=== PATIENT | male | born 1975 | race Caucasian/White ===

== ENCOUNTER 2016-12-30 17:17 | Emergency (ER) | payer OTHER ==
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
[2016-12-30] MEDS ORDERED: NS 1,000 ML IV ONE (17:29)
[2016-12-30 17:35] LABS: % IMMATURE GRANULYOCYTES 0.4 % (0.0-1.1); ABSOLUTE IMMATURE GRANULOCYTES 0.05 10^3/uL (0.00-0.10); ADD DIFF? NO; ADD MORPH? NO; ADD SCAN? NO; ATYPICAL LYMPHOCYTE FLAG 0 (0-99); FRAGMENT RBC FLAG 0 (0-99); HEMATOCRIT 50.2 % (40.0-51.0); LEFT SHIFT FLG 0 (0-99); LIPEMIA HEMOLYSIS FLAG 80 (0-99); MEAN CELL HEMOGLOBIN 34.9 pg (27.9-34.1); MEAN CELL HEMOGLOBIN CONCENTR. 31.9 g/dL (32.4-36.7); MEAN CELL VOLUME 109.4 fL (81.5-99.8); MEAN PLATELET VOLUME 10.4 fL (8.7-11.7); PLATELET CLUMPS FLAG 0 (0-99); PLATELET COUNT 245 10^3/uL (150-400); RED BLOOD CELL COUNT 4.59 10^6/uL (4.40-6.38); RED CELL DISTRIBUTION WIDTH 11.8 % (11.5-15.2)
[2016-12-30 17:49] LABS: ANION GAP 31 mEq/L (8-16); CALCIUM 10.5 mg/dL (8.5-10.4); CARBON DIOXIDE 12 mEq/l (22-31); CHLORIDE 105 mEq/L (97-110); CREATININE 1.4 mg/dL (0.7-1.3); GLOMERULAR FILTRATION RATE 55; GLUCOSE 109 mg/dL (70-100); POTASSIUM 3.6 mEq/L (3.5-5.2); SODIUM 148 mEq/L (134-144)
[2016-12-30 18:04] VITALS: RESP 19
[2016-12-30 18:31] VITALS: BP 130/70; PULSE 86; TEMP 97.9; O2SAT 92
== END 2016-12-30 18:46 | disposition home or self-care (01) ==
LOC: EDUNIT#
DX: G40.909 Epilepsy, unspecified, not intractable, without status epilepticus (principal)

== ENCOUNTER 2017-04-22 16:39 | Emergency (ER) | payer OTHER ==
[2017-04-22 16:46] VITALS: BP 118/85; PULSE 68; RESP 18; TEMP 97.7; O2SAT 95
[2017-04-22] MEDS ORDERED: TDAP ADULT 0.5 ML INJ (BOOSTRIX) IM ONE (17:07)
[2017-04-22] MEDS ORDERED: OXYCODONE/APAP 5/325 TAB PO ONE (17:07)
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
== END 2017-04-22 17:45 | disposition home or self-care (01) ==
PROC: 0HQLXZZ Repair Left Lower Leg Skin, External Approach (ICD-10-PCS; principal; 2017-04-22)
DX: S81.812A Laceration without foreign body, left lower leg, initial encounter (principal); W23.1XXA Caught, crushed, jammed, or pinched between stationary objects, initial encounter; Y93.55 Activity, bike riding

== ENCOUNTER 2017-05-06 15:23 | Emergency (ER) | payer OTHER ==
[2017-05-06 15:28] VITALS: RESP 16; O2SAT 96
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
[2017-05-06 17:13] VITALS: BP 112/56; PULSE 63; TEMP 97.7
== END 2017-05-06 17:11 | disposition home or self-care (01) ==
DX: S81.812D Laceration without foreign body, left lower leg, subsequent encounter (principal); W22.8XXD Striking against or struck by other objects, subsequent encounter

== ENCOUNTER 2017-05-16 14:30 | Emergency (ER) | payer OTHER ==
[2017-05-16 14:37] VITALS: BP 131/74; PULSE 66; RESP 15; TEMP 97.9; O2SAT 97
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
== END 2017-05-16 17:44 | disposition home or self-care (01) ==
PROC: 0H9LXZZ Drainage of Left Lower Leg Skin, External Approach (ICD-10-PCS; principal; 2017-05-16)
DX: M79.605 Pain in left leg (principal)

== ENCOUNTER 2017-08-01 15:05 | Emergency (ER) | payer OTHER ==
--- NOTE | 2017-08-01 15:20 | EDPHY ---
H & P Time Seen by Provider: 08/01/17 15:09 HPI/ROS: CHIEF COMPLAINT: Seizure HISTORY OF PRESENT ILLNESS: Patient with a history of epilepsy since 26/09 treated at [facility] currently on 200 mg twice daily of Lamictal. He also had surgery within the last month a [facility] to try and control his seizures. He does not drive and has seizures with a frequency from 3 times a week to once every 60 days. Today he was noted to have full body tonic clonic seizure and was brought in by EMS. Patient was initially confused but now is becoming more clear. He is on 200 mg twice daily of Lamictal and knows that his neurologist is Dr. Jasso at [place] REVIEW OF SYSTEMS: Eye: no change in vision ENT: no sore throat Cardiac: no chest pain or palpitations Pulmonary: no cough or SOB Abdomen: no vomiting, diarrhea, abdominal pain Musculoskeletal: no back pain or neck pain Skin: no rash Neuro: no headache Constitutional: no fever : no urinary symptoms A comprehensive 10 point review of systems is otherwise negative aside from elements mentioned in the history of present illness. PAST MEDICAL HISTORY: Seizure disorder. Anticoagulated for clotting disorder. Social history: Denies alcohol, friend present with him in the ER. Knows about driving warnings, has not been driving for at least 1 year now. General Appearance: Alert and conversant, cooperative. Eyes: No scleral icterus. ENT, Mouth: No tongue laceration or abrasion, has 1.5cm tender hematoma on vertex of scalp. Respiratory: Normal respiratory effort, breath sounds equal, lungs are clear to auscultation. Cardiovascular: Regular rate and rhythm. Gastrointestinal: Abdomen is soft and non tender. Neurological: Alert and oriented x3. Normally conversant. Face symmetric, normal movement and sensation in all extremities. Skin: Warm and dry, no rashes. Musculoskeletal: No peripheral edema and no joint swelling. Psychiatric: Not agitated. Emergency Department course/MDM: DR. Konrad Jasso 1529. Diagnostic testing at discharged June 21. Recommended leaving patient on current dose of medications. Cervical spine cleared clinically. 155: Normal head CT for trauma per [facility]. 160: Alert, appears normally conversant. Oriented x3. Wants to be discharged. Back to normal mental status. Plan to observe until 1699, discharge if no further seizure activity. 1654: Doing well, alert, no complaints. Smoking Status: Never smoked Constitutional: Initial Vital Signs Temperature (C) 36.7 C 08/01/17 15:23 Heart Rate 85 08/01/17 15:23 Respiratory Rate 18 08/01/17 15:23 Blood Pressure 134/89 H 08/01/17 15:23 O2 Sat (%) 98 08/01/17 15:23 O2 Delivery Mode Room Air Allergies/Adverse Reactions: No Known Allergies Allergy (Verified 04/22/17 16:42) Home Medications: Medication Instructions Recorded LAMOTRIGINE 09/17/16 Cephalexin [Keflex] 500 mg PO QID 10 Days cap 04/30/17 Medical Decision Making - Diagnostics EKG Interpretation: 12-lead EKG interpreted by me; official reading is in trace master. My interpretation is sinus rhythm rate 74 no ischemic changes. Imaging Results: Imaging Impressions Head CT 08/01/17 15:18 Impression: 1. No acute hemorrhage, hydrocephalus or mass effect. 2. Previous left temporal lobe surgical resection. 3. No epidural or subdural hematoma. Findings and recommendations discussed with Emergency Department physician, Michael Washington at 1549 hour, 08/01/2017. Final report concurs with initial preliminary interpretation. Differential Diagnosis: Differential diagnosis considered for a seizure including but not limited to electrolyte abnormality, alcohol withdrawal, medication noncompliance, head injury, and breakthrough seizure. - Data Points Laboratory Results: Laboratory Results 08/01/17 14:55 08/01/17 14:55 08/01/17 08/01/17 08/01/17 14:55 14:55 14:55 WBC 9.54 10^3/uL H 10^3/uL (3.80-9.50) RBC 4.67 10^6/uL 10^6/uL (4.40-6.38) Hgb 16.3 g/dL g/dL (13.7-17.5) Hct 48.6 % % (40.0-51.0) MCV 104.1 fL H fL (81.5-99.8) MCH 34.9 pg H pg (27.9-34.1) MCHC 33.5 g/dL g/dL (32.4-36.7) RDW 12.4 % % (11.5-15.2) Plt Count 255 10^3/uL 10^3/uL (150-400) MPV 10.1 fL fL (8.7-11.7) Neut % (Auto) 36.3 % L % (39.3-74.2) Lymph % (Auto) 51.7 % H % (15.0-45.0) [place] % (Auto) 7.8 % % (4.5-13.0) Eos % (Auto) 2.7 % % (0.6-7.6) Baso % (Auto) 0.7 % % (0.3-1.7) Nucleat RBC Rel Count 0.0 % % (0.0-0.2) Absolute Neuts (auto) 3.46 10^3/uL 10^3/uL (1.70-6.50) Absolute Lymphs (auto) 4.93 10^3/uL H 10^3/uL (1.00-3.00) Absolute Monos (auto) 0.74 10^3/uL 10^3/uL (0.30-0.80) Absolute Eos (auto) 0.26 10^3/uL 10^3/uL (0.03-0.40) Absolute Basos (auto) 0.07 10^3/uL 10^3/uL (0.02-0.10) Absolute Nucleated RBC 0.00 10^3/uL 10^3/uL (0-0.01) Immature Gran % 0.8 % % (0.0-1.1) Immature Gran # 0.08 10^3/uL 10^3/uL (0.00-0.10) PT 19.2 SEC H SEC (12.0-15.0) INR 1.61 H (0.83-1.16) Sodium 143 mEq/L mEq/L (134-144) Potassium 4.0 mEq/L mEq/L (3.5-5.2) Chloride 101 mEq/L mEq/L (97-110) Carbon Dioxide 11 mEq/l L mEq/l (22-31) Anion Gap 31 mEq/L H mEq/L (8-16) BUN 12 mg/dL mg/dL (7-23) Creatinine 1.3 mg/dL mg/dL (0.7-1.3) Estimated GFR 60 Glucose 98 mg/dL mg/dL (70-100) Calcium 9.5 mg/dL mg/dL (8.5-10.4) Departure - Departure Disposition: Home, Routine, Self-Care Clinical Impression: Seizure disorder Condition: Good Instructions: Epilepsy (ED) Referrals: VIKKI JASSO [Medical Doctor] - As per Instructions (Call your doctor tomorrow to arrange follow-up and further instructions on your medications. No driving.)
--- NOTE | 2017-08-01 15:20 | CPEKG ---
Heart Rate: 74 RR Interval: 811 P-R Interval: 172 QRSD Interval: 84 QT Interval: 380 QTC Interval: 422 P [place]: 67 QRS [place]: 25 T Wave [place]: 37 EKG Severity - NORMAL ECG - EKG Impression: SINUS RHYTHM Electronically Signed By: Michael Washington 01-Aug-2017 15:30:57
[2017-08-01 15:22] LABS: % IMMATURE GRANULYOCYTES 0.8 % (0.0-1.1); ABSOLUTE IMMATURE GRANULOCYTES 0.08 10^3/uL (0.00-0.10); ADD DIFF? NO; ADD MORPH? NO; ADD SCAN? NO; ATYPICAL LYMPHOCYTE FLAG 0 (0-99); FRAGMENT RBC FLAG 0 (0-99); HEMATOCRIT 48.6 % (40.0-51.0); HEMOGLOBIN 16.3 g/dL (13.7-17.5); LEFT SHIFT FLG 0 (0-99); LIPEMIA HEMOLYSIS FLAG 80 (0-99); MEAN CELL HEMOGLOBIN 34.9 pg (27.9-34.1); MEAN CELL HEMOGLOBIN CONCENTR. 33.5 g/dL (32.4-36.7); MEAN CELL VOLUME 104.1 fL (81.5-99.8); MEAN PLATELET VOLUME 10.1 fL (8.7-11.7); PLATELET CLUMPS FLAG 0 (0-99); PLATELET COUNT 255 10^3/uL (150-400); RED BLOOD CELL COUNT 4.67 10^6/uL (4.40-6.38); RED CELL DISTRIBUTION WIDTH 12.4 % (11.5-15.2)
[2017-08-01 15:26] VITALS: TEMP 98.1
[2017-08-01 15:31] LABS: ANION GAP 31 mEq/L (8-16); CALCIUM 9.5 mg/dL (8.5-10.4); CARBON DIOXIDE 11 mEq/l (22-31); CHLORIDE 101 mEq/L (97-110); CREATININE 1.3 mg/dL (0.7-1.3); GLOMERULAR FILTRATION RATE 60; GLUCOSE 98 mg/dL (70-100); SODIUM 143 mEq/L (134-144)
[2017-08-01 15:32] LABS: INR 1.61 (0.83-1.16); PROTIME(PATIENT) 19.2 SEC (12.0-15.0)
[2017-08-01 17:10] VITALS: BP 143/83; PULSE 71; RESP 16; O2SAT 95
== END 2017-08-01 17:09 | disposition home or self-care (01) ==
LOC: EDUNIT#
DX: G40.909 Epilepsy, unspecified, not intractable, without status epilepticus (principal)

== ENCOUNTER 2017-09-10 10:40 | Observation (INO) | payer OTHER ==
--- NOTE | 2017-09-10 13:05 | EDPHY ---
HPI/HX/ROS/PE/MDM Narrative: CHIEF COMPLAINT: Seizure HISTORY OF PRESENT ILLNESS: The patient is an anticoagulated 42 y/o male with a history of seizures and DVTs arriving with his friend for evaluation of a seizure last night. He remembers cleaning out his garage last night and later his friend found him at the front door "covered in blood" per patient. The patient does not remember what happened and believes he had a seizure. This morning the patient's mother from [id number] called the patient's friend concerned he had a seizure this morning as well, so his friend brought him here. This story is unclear as the patient does not remember most of last night or this morning. He currently complains of a headache, left sided facial pain, vomiting, left rib pain, and tongue swelling. No fever, chills, chest pain, shortness of breath, palpitations, abdominal pain , diarrhea, urinary complaints, lightheadedness. REVIEW OF SYSTEMS: Aside from elements discussed in the HPI, a comprehensive 10-point review of systems was reviewed and is negative. PAST MEDICAL HISTORY: 1. Epilepsy - Grand Mal seizures, Lamictal 2. DVT - Coumadin 3. 2 week admission at [facility] in June 2017 4. 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 Lives in [place]. Employed. VITAL SIGNS: Reviewed by me GENERAL: Well-developed, well-nourished, obvious with the left side of the face. Looks relatively uncomfortable. HEENT: Facial deformity on left buddhist from prior surgery, abrasions to left cheek with swelling. Eyes: Left eye has surrounding ecchymosis, no icterus, no injection. Mouth: moist mucous membranes. No erythema or lesions. Neck: no focal tenderness, supple with no adenopathy. LUNGS: Clear to auscultation bilaterally, no wheezes, rhonchi or rales. CARDIAC: Regular rate and rhythm, no rubs, murmurs or gallops. CHEST: Left anterior chest wall tenderness without crepitus ABDOMEN: Soft, epigastric, LUQ and left mid abdominal tenderness, no guarding or rebound, nondistended, bowel sounds normal. BACK: No CVA tenderness. No midline spinal tenderness to palpation. EXTREMITIES: No trauma. No edema. Range of motion is normal throughout. NEURO: Alert and oriented, cranial nerves are intact throughout, normal motor, normal sensation. SKIN: Warm and dry, no rash. PSYCHIATRIC: Normal mentation, no agitation. Portions of this note were transcribed by a medical physics teacher. I personally performed a history, physical exam, medical decision making, and confirmed accuracy of information the transcribed note. ED Course: This is an anticoagulated 42 y/o male with a history of seizures and upper extremity DVT who presents with left-sided injuries after a period of unconsciousness last night, which he believes was a seizure. He has left-sided chest wall tenderness, left-sided abdominal tenderness, ecchymosis around his left eye, and abrasions along his left cheek on exam. Particular concern for intracranial and intraabdominal injuries due to his use of Coumadin. Plan for IV , labs, EKG, imaging, and pain management. Head CT, neck CT, chest CT, abdomen CT ordered. 1L IV NS and 1mg IV Dilaudid administered. The 12 lead EKG was interpreted by myself. Sinus rhythm See hard copy and/or "tracemaster" electronic copy for interpretation. 1450: Head CT shows small, 6 mm area of intraparenchymal hemorrhage. CT scan of the cervical spine, chest, abdomen pelvis demonstrate no acute traumatic abnormalities. Patient does have severe compression fracture at T6 but this is sclerotic and not felt to be new. He also has linear scarring with bulla in the right posterior upper lobe of the lung which will require follow-up. Patient's course discussed with Dr. Camilo Reyes, neurosurgery. Plan to admit to Neurosurgery given patient's isolated head trauma. Patient's INR is currently subtherapeutic at 1.39. Patient's course also discussed with Dr. Gerard Vanessa who will evaluate the patient in the emergency department from a general surgical standpoint. Course was also discussed with Dr. Raghav Mathis from Neurology, they will evaluate the patient during this hospital visit. Patient was into ICU in stable condition. MDM: Differential diagnosis for the presenting complaint was considered including but not limited to concussion, skull fracture, intraparenchymal contusion, intraparenchymal hemorrhage, subarachnoid, subdural and epidural hematoma. Differential diagnosis of the patient's seizure was considered including but not limited to electrolyte abnormality, alcohol withdrawal, medication noncompliance, head injury, meningitis, encephalitis, and breakthrough seizure. - Data Points Imaging Results: Imaging Impressions Abdomen CT 09/10/17 13:18 Impression: No evidence for acute intra-abdominal or pelvic abnormality. Stable moderate compression fracture of L1. Mild progression of a mild compression fracture of T12. CT chest with IV contrast History: Trauma. Comparison: CT August 2012 and November 2013. Technique: 1.5-mm helical images were obtained of the chest from the the lung apices through the lung bases. This was done postintravenous contrast, with 95 mL Isovue-300 contrast. Multiplanar reformation was performed at the workstation. Radiation dose reduction technique was utilized. Findings: Severe compression fracture is seen of T6 with sclerosis, stable in appearance. There is mild depression of the superior endplate of T8, stable in appearance. No new thoracic spine fracture. There is multilevel degenerative change. Degenerative change is seen in both glenohumeral joints. There is evidence of prior surgery in the right glenoid. Heart size is within normal limits. No evidence for mediastinal hematoma. No significant mediastinal or hilar lymphadenopathy. There is a scarlike opacity, which is new from the interval in the posterior right upper lobe. There is a 7-mm irregular soft tissue component posteriorly adjacent to the fissure with adjacent bullae. Lungs are otherwise clear. No evidence for pulmonary contusion or pneumonia. No evidence for pleural effusion or pneumothorax. Impression: 1. Stable severe compression fracture of T6 with sclerosis. Stable mild compression fracture of T8. No new compression fracture. 2. New focal area of scarlike density and adjacent bullae in the posterior right upper lobe. As it has a 7-mm soft tissue component, consider follow up in 6 months. 3. Degenerative change in both glenohumeral joints. Results called and discussed with Dr. Rizwana Montes De Oca on September 10, 2017 at [address] 09/10/17 13:18 Impression: Small foci of intraparenchymal hemorrhage in the left frontal lobe. Scalp hematoma without evidence for skull fracture. Stable postsurgical change in the left anterior temporal lobe and left craniotomy. CT Cervical Spine Without Contrast History: Trauma. Technique: 1.5 mm helical images were obtained of the cervical spine without contrast. Multiplanar reformation was performed. Radiation dose reduction technique was utilized. Findings: No evidence for cervical spine fracture. No significant spondylolisthesis. There is mild disk height narrowing and osteophytosis at C5- C6 and C6-C7. Multilevel degenerative disk and degenerative joint disease of the cervical spine. The level of most significant encroachment is at C5-C6 with moderate central spinal canal and left lateral recess narrowing and moderate bilateral neural foraminal narrowing. Impression: 1. No evidence for cervical spine fracture. 2. Multilevel degenerative disk and degenerative joint disease of the cervical spine most pronounced at C5-C6. Results called and discussed with Rizwana Montes De Oca MD on 09/10/2017, 14:54. Chest CT 09/10/17 13:18 Impression: No evidence for acute intra-abdominal or pelvic abnormality. Stable moderate compression fracture of L1. Mild progression of a mild compression fracture of T12. CT chest with IV contrast History: Trauma. Comparison: CT August 2012 and November 2013. Technique: 1.5-mm helical images were obtained of the chest from the the lung apices through the lung bases. This was done postintravenous contrast, with 95 mL Isovue-300 contrast. Multiplanar reformation was performed at the workstation. Radiation dose reduction technique was utilized. Findings: Severe compression fracture is seen of T6 with sclerosis, stable in appearance. There is mild depression of the superior endplate of T8, stable in appearance. No new thoracic spine fracture. There is multilevel degenerative change. Degenerative change is seen in both glenohumeral joints. There is evidence of prior surgery in the right glenoid. Heart size is within normal limits. No evidence for mediastinal hematoma. No significant mediastinal or hilar lymphadenopathy. There is a scarlike opacity, which is new from the interval in the posterior right upper lobe. There is a 7-mm irregular soft tissue component posteriorly adjacent to the fissure with adjacent bullae. Lungs are otherwise clear. No evidence for pulmonary contusion or pneumonia. No evidence for pleural effusion or pneumothorax. Impression: 1. Stable severe compression fracture of T6 with sclerosis. Stable mild compression fracture of T8. No new compression fracture. 2. New focal area of scarlike density and adjacent bullae in the posterior right upper lobe. As it has a 7-mm soft tissue component, consider follow up in 6 months. 3. Degenerative change in both glenohumeral joints. Results called and discussed with Dr. Rizwana Montes De Oca on September 10, [address] 09/10/17 13:18 Impression: Small foci of intraparenchymal hemorrhage in the left frontal lobe. Scalp hematoma without evidence for skull fracture. Stable postsurgical change in the left anterior temporal lobe and left craniotomy. CT Cervical Spine Without Contrast History: Trauma. Technique: 1.5 mm helical images were obtained of the cervical spine without contrast. Multiplanar reformation was performed. Radiation dose reduction technique was utilized. Findings: No evidence for cervical spine fracture. No significant spondylolisthesis. There is mild disk height narrowing and osteophytosis at C5- C6 and C6-C7. Multilevel degenerative disk and degenerative joint disease of the cervical spine. The level of most significant encroachment is at C5-C6 with moderate central spinal canal and left lateral recess narrowing and moderate bilateral neural foraminal narrowing. Impression: 1. No evidence for cervical spine fracture. 2. Multilevel degenerative disk and degenerative joint disease of the cervical spine most pronounced at C5-C6. Results called and discussed with Rizwana Montes De Oca MD on 09/10/2017, 14:54. Imaging: Discussed imaging studies w/ ticket sales agent Radiologist, I viewed and interpreted images myself Laboratory Results: Laboratory Results 09/10/17 12:45 09/10/17 12:45 09/10/17 09/10/17 09/10/17 14:50 13:21 12:45 WBC RBC Hgb POC Hgb 16.3 gm/dL gm/dL (13.7-17.5) Hct POC Hct 48 % % (40-51) MCV MCH MCHC RDW Plt Count MPV Neut % (Auto) Lymph % (Auto) [place] % (Auto) Eos % (Auto) Baso % (Auto) Nucleat RBC Rel Count Absolute Neuts (auto) Absolute Lymphs (auto) Absolute Monos (auto) Absolute Eos (auto) Absolute Basos (auto) Absolute Nucleated RBC Immature Gran % Immature Gran # PT INR APTT POC Sodium 139 mEq/L mEq/L (134-144) Sodium 140 mEq/L mEq/L (134-144) POC Potassium 4.5 mEq/L mEq/L (3.3-5.0) Potassium 4.3 mEq/L mEq/L (3.5-5.2) POC Chloride 102 mEq/L mEq/L (97-110) Chloride 102 mEq/L mEq/L (97-110) Carbon Dioxide 26 mEq/l mEq/l (22-31) Anion Gap 12 mEq/L mEq/L (8-16) POC BUN 16 mg/dL mg/dL (7-23) BUN 13 mg/dL mg/dL (7-23) Creatinine 1.1 mg/dL mg/dL (0.7-1.3) POC Creatinine 1.1 mg/dL mg/dL (0.7-1.3) Estimated GFR > 60 Glucose 83 mg/dL mg/dL (70-100) POC Glucose 115 mg/dL H mg/dL (70-100) Calcium 9.5 mg/dL mg/dL (8.5-10.4) Urine Opiates Screen NON-NEGATIVE H (NEGATIVE) Urine Barbiturates NEGATIVE (NEGATIVE) Ur Phencyclidine Scrn NEGATIVE (NEGATIVE) Ur Amphetamine Screen NEGATIVE (NEGATIVE) U Benzodiazepines Scrn NEGATIVE (NEGATIVE) Urine Cocaine Screen NEGATIVE (NEGATIVE) U Marijuana (THC) Screen NON-NEGATIVE H (NEGATIVE) 09/10/17 09/10/17 12:45 12:45 WBC 11.63 10^3/uL H 10^3/uL (3.80-9.50) RBC 4.68 10^6/uL 10^6/uL (4.40-6.38) Hgb 15.8 g/dL g/dL (13.7-17.5) POC Hgb Hct 46.8 % % (40.0-51.0) POC Hct MCV 100.0 fL H fL (81.5-99.8) MCH 33.8 pg pg (27.9-34.1) MCHC 33.8 g/dL g/dL (32.4-36.7) RDW 12.6 % % (11.5-15.2) Plt Count 214 10^3/uL 10^3/uL (150-400) MPV 10.2 fL fL (8.7-11.7) Neut % (Auto) 80.0 % H % (39.3-74.2) Lymph % (Auto) 11.3 % L % (15.0-45.0) [place] % (Auto) 7.8 % % (4.5-13.0) Eos % (Auto) 0.2 % L % (0.6-7.6) Baso % (Auto) 0.3 % % (0.3-1.7) Nucleat RBC Rel Count 0.0 % % (0.0-0.2) Absolute Neuts (auto) 9.30 10^3/uL H 10^3/uL (1.70-6.50) Absolute Lymphs (auto) 1.31 10^3/uL 10^3/uL (1.00-3.00) Absolute Monos (auto) 0.91 10^3/uL H 10^3/uL (0.30-0.80) Absolute Eos (auto) 0.02 10^3/uL L 10^3/uL (0.03-0.40) Absolute Basos (auto) 0.04 10^3/uL 10^3/uL (0.02-0.10) Absolute Nucleated RBC 0.00 10^3/uL 10^3/uL (0-0.01) Immature Gran % 0.4 % % (0.0-1.1) Immature Gran # 0.05 10^3/uL 10^3/uL (0.00-0.10) PT 17.2 SEC H SEC (12.0-15.0) INR 1.39 H (0.83-1.16) APTT 29.1 SEC SEC (23.0-38.0) POC Sodium Sodium POC Potassium Potassium POC Chloride Chloride Carbon Dioxide Anion Gap POC BUN BUN Creatinine POC Creatinine Estimated GFR Glucose POC Glucose Calcium Urine Opiates Screen Urine Barbiturates Ur Phencyclidine Scrn Ur Amphetamine Screen U Benzodiazepines Scrn Urine Cocaine Screen U Marijuana (THC) Screen Medications Given: Discontinued Medications Hydromorphone HCl (Dilaudid) 1 mg IVP EDNOW ONE Stop: 09/10/17 13:19 Last Admin: 09/10/17 13:34 Dose: 1 mg Hydromorphone HCl (Dilaudid) 1 mg IVP EDNOW ONE Stop: 09/10/17 15:26 Last Admin: 09/10/17 15:38 Dose: 1 mg Sodium Chloride (Ns) 1,000 mls @ 0 mls/hr IV ONCE ONE; Wide Open PRN Reason: Protocol Stop: 09/10/17 13:19 Last Admin: 09/10/17 13:34 Dose: 1,000 mls Lorazepam (Ativan Injection) 1 mg IVP EDNOW ONE Stop: 09/10/17 13:34 Last Admin: 09/10/17 13:35 Dose: 1 mg Ondansetron HCl (Zofran) 4 mg IVP EDNOW ONE Stop: 09/10/17 13:36 Last Admin: 09/10/17 13:40 Dose: 4 mg Point of Care Test Results: 09/10/17 13:21 POC Sodium 139 POC Potassium 4.5 POC Chloride 102 POC BUN 16 POC Creatinine 1.1 POC Glucose 115 H General Time Seen by Provider: 09/10/17 12:48 Initial Vital Signs: Initial Vital Signs Temperature (C) 36.5 C 09/10/17 10:45 Heart Rate 77 09/10/17 10:45 Respiratory Rate 18 09/10/17 10:45 Blood Pressure 144/59 H 09/10/17 10:45 O2 Sat (%) 94 09/10/17 10:45 O2 Delivery Mode Room Air Allergies/Adverse Reactions: No Known Allergies Allergy (Verified 09/10/17 10:49) Home Medications: Medication Instructions Recorded Herbals/Supplements -Info Only 1 ea PO HS 09/10/17 Warfarin Sodium [Coumadin 4MG (*)] 4 mg PO HS 09/10/17 lamOTRIGine [Lamotrigine] 400 mg PO DAILY 09/10/17 Departure - Departure Disposition: [facility] Acute Clinical Impression: Intraparenchymal hemorrhage of brain, Seizure, on coumadin Condition: Serious Report Scribed for: Rizwana Montes De Oca Report Scribed by: Elly Perez Date of Report: 09/10/17 Time of Report: 13:13
[2017-09-10] MEDS ORDERED: NS 1,000 ML IV ONE (13:18)
[2017-09-10] MEDS ORDERED: HYDROmorphONE/DILAUDID 1 MG/ML INJ IVP ONE (13:18)
[2017-09-10 13:26] LABS: % IMMATURE GRANULYOCYTES 0.4 % (0.0-1.1); ABSOLUTE IMMATURE GRANULOCYTES 0.05 10^3/uL (0.00-0.10); ADD DIFF? NO; ADD MORPH? NO; ADD SCAN? NO; ATYPICAL LYMPHOCYTE FLAG 0 (0-99); FRAGMENT RBC FLAG 0 (0-99); HEMATOCRIT 46.8 % (40.0-51.0); HEMOGLOBIN 15.8 g/dL (13.7-17.5); LEFT SHIFT FLG 0 (0-99); LIPEMIA HEMOLYSIS FLAG 90 (0-99); MEAN CELL HEMOGLOBIN 33.8 pg (27.9-34.1); MEAN CELL HEMOGLOBIN CONCENTR. 33.8 g/dL (32.4-36.7); MEAN PLATELET VOLUME 10.2 fL (8.7-11.7); PLATELET CLUMPS FLAG 0 (0-99); PLATELET COUNT 214 10^3/uL (150-400); RED BLOOD CELL COUNT 4.68 10^6/uL (4.40-6.38); RED CELL DISTRIBUTION WIDTH 12.6 % (11.5-15.2)
[2017-09-10] MEDS ORDERED: LORazepam 2 MG/ML INJ ONE (13:29)
[2017-09-10] MEDS ORDERED: ONDANSETRON 4 MG/2 ML VIAL ONE (13:30)
[2017-09-10] MEDS ORDERED: LORazepam 2 MG/ML INJ IVP ONE (13:33)
[2017-09-10 13:34] LABS: INR 1.39 (0.83-1.16); PROTIME(PATIENT) 17.2 SEC (12.0-15.0)
[2017-09-10 13:35] LABS: ANION GAP 12 mEq/L (8-16); APTT 29.1 SEC (23.0-38.0); CALCIUM 9.5 mg/dL (8.5-10.4); CARBON DIOXIDE 26 mEq/l (22-31); CHLORIDE 102 mEq/L (97-110); CREATININE 1.1 mg/dL (0.7-1.3); GLOMERULAR FILTRATION RATE > 60; GLUCOSE 83 mg/dL (70-100); POTASSIUM 4.3 mEq/L (3.5-5.2); SODIUM 140 mEq/L (134-144)
[2017-09-10] MEDS ORDERED: ONDANSETRON 4 MG/2 ML VIAL IVP ONE (13:35)
--- NOTE | 2017-09-10 15:15 | CPEKG ---
Heart Rate: 71 RR Interval: 845 P-R Interval: 180 QRSD Interval: 88 QT Interval: 404 QTC Interval: 439 P [place]: 61 QRS [place]: 5 T Wave [place]: 3 EKG Severity - NORMAL ECG - EKG Impression: SINUS RHYTHM Electronically Signed By: Rizwana Montes De Oca 10-Sep-2017 17:56:46
[2017-09-10] MEDS ORDERED: HYDROmorphONE/DILAUDID 2 MG/ML INJ IVP ONE (15:25)
--- NOTE | 2017-09-10 16:48 | GCON ---
[f rep st] CONSULTATION NEUROSURGICAL CONSULTATION CHIEF COMPLAINT: Fall with syncope. HISTORY OF PRESENT ILLNESS: This is a 42-year-old male, who was in excellent health yesterday and is on anticoagulation with a history of seizures and DVTs who arrived via his friend. Apparently he ramos d some type of a seizure or a fall last evening. He remembers cleaning out his garage. His friend paul dowd found him at the front door covered in blood per the patient. He does not remember what happene d and believes he may have had a seizure The patient's mother from out of state had appare ntly called the patient's friend concerned he had a seizure and his friend brought him to the [facility]. The patient is completely amnestic. At this point in time, he complains of headache, nausea, vom iting, left-sided rib pain, left shoulder pain, left 1st three digit paresthesias, foot pain, and fac ial pain. He denies any neck pain, back pain, weakness, loss of control of bowel or bladder. He den ies any other complaints. PAST MEDICAL HISTORY: 1. Epilepsy. 2. DVT. 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 SURGICAL HISTORY: Temporal lobectomy. SOCIAL HISTORY: Lives in [place], is employed. Does not smoke. Denies alcohol. FAMILY HISTORY: No significant family history. REVIEW OF SYSTEMS: A complete 10 system review of systems was performed by myself. Was negative exc ept as stated above. PHYSICAL EXAMINATION: VITAL SIGNS: Blood pressure is 129/84, heart rate 72, respiratory rate 14, sa turating 98% on room air. NEUROLOGIC: He is alert and oriented x3. Pupils are equal, round, reactiv e to light and accommodation. External ocular muscles are intact. There is left facial ecchymosis a nd periorbital ecchymosis. He has some limitation in his left side given to the swelling in the left side of his face. There is no tongue deviation. Sensation is intact V1, V2, V3 distributions of 5th cranial nerve bilaterally. Strength is 5/5 to bilateral deltoids, biceps, triceps, wrist flexors, w rist extensors, hand intrinsics, iliopsoas, quadriceps, hamstrings, dorsiflexors, plantar flexors, EH L. DTRs are +2/4 biceps, brachioradialis, patellar, and Achilles. LABORATORY/IMAGING DATA: White blood cell count 11.63, hemoglobin 15.8, hematocrit 46.8. Platelets are 214. PT is 17.2. INR is 1.39. PTT is 29.1. Sodium 139, potassium 4.5, chloride 102, CO2 102, BUN 13, creatinine 1.1. Glucose 115. Urine is positive for opiates and marijuana. CT of the head r eveals soft tissue swelling in the left frontal scalp indicating scalp hematoma, no evidence for skul l fracture. A small foci of increased attenuation in the anterior parenchyma in the left frontal lob e that is very subtle. No evidence of epidural or subdural hematoma. Postsurgical changes are seen in the left temporal craniotomy and resection of the anterior left temporal lobe is stable in appeara nce. No other findings of intracranial mass, hemorrhage or infarct. Ventricle sulci and cisterns ar e otherwise within normal limits for patient's age. Another nonspecific density is seen in the poste rior left parietal scalp which could represent another scalp hematoma that was not seen recently in O ctober. No evidence for air-fluid level in the paranasal sinuses. CT of the cervical spine reveals mild multilevel degenerative disk disease most pronounced at C5-6 with mild disk height narrowing and osteophytosis at C5-6 and C6-7. There is mild to moderate central spinal canal and left lateral rec ess narrowing, and moderate bilateral neural foraminal narrowing at C5-6. CT of the chest reveals a compression fracture of T6 with sclerosis that is stable in appearance representing an old and mild d epression of the superior endplate of T8 representing old fractures. No new compression fractures. Multilevel degenerative changes present. There is a stable moderate compression fracture of L1 zeferino red to previous and some mild depression in superior endplate of T12 that may have minimally progress ed over the interval. No evidence of acute fracture. IMPRESSION AND PLAN: This is a 42-year-old male, who apparently had a seizure, although he is amnest ic and has a seizure disorder who has a very small foci of questionable petechial hemorrhage in the l eft frontal lobe. He is anticoagulated for deep vein thrombosis. At this point in time, would defer to Neurology for management of his seizures. Would not recommend any further imaging of the brain u nless clinically indicated. Defer to Trauma Surgery for management of his other injuries. At this p oint in time, I believe that the compression fractures seen are chronic as they were compared with pr evious studies and do not require further treatment. If he continues to have paresthesias in his lef t hand, could recommend an MRI of the cervical spine; however, would not address this in the acute se tting. He may follow up as an outpatient for this. He could be admitted to the floor or to the step -down at Trauma's discretion and with q.2 hour neurologic checks and likely will be discharged in the morning. Please call with any changes in neurologic status. /[id number]/MODL
[2017-09-10] MEDS ORDERED: ACETAMINOPHEN 325 MG TAB PO PRN (17:41)
[2017-09-10] MEDS: OXYCODONE/APAP 5/325 TAB PO PRN ×2 (18:03→21:58)
[2017-09-10] MEDS ORDERED: lamoTRIgine 25 MG TAB PO ONE (19:00)
[2017-09-11] MEDS: OXYCODONE/APAP 5/325 TAB PO PRN (03:45)
[2017-09-11 03:55] VITALS: RESP 14; O2SAT 96
[2017-09-11 04:01] LABS: % IMMATURE GRANULYOCYTES 0.3 % (0.0-1.1); ABSOLUTE IMMATURE GRANULOCYTES 0.03 10^3/uL (0.00-0.10); ADD DIFF? NO; ADD MORPH? NO; ADD SCAN? NO; ATYPICAL LYMPHOCYTE FLAG 0 (0-99); FRAGMENT RBC FLAG 0 (0-99); HEMATOCRIT 43.2 % (40.0-51.0); HEMOGLOBIN 15.1 g/dL (13.7-17.5); LEFT SHIFT FLG 0 (0-99); LIPEMIA HEMOLYSIS FLAG 90 (0-99); MEAN CELL HEMOGLOBIN 35.1 pg (27.9-34.1); MEAN CELL VOLUME 100.5 fL (81.5-99.8); PLATELET CLUMPS FLAG 20 (0-99); PLATELET COUNT 196 10^3/uL (150-400); RED CELL DISTRIBUTION WIDTH 12.8 % (11.5-15.2)
[2017-09-11 04:10] LABS: INR 1.34 (0.83-1.16); PROTIME(PATIENT) 16.8 SEC (12.0-15.0)
[2017-09-11 04:11] LABS: APTT 31.2 SEC (23.0-38.0)
[2017-09-11 04:12] LABS: ANION GAP 13 mEq/L (8-16); CALCIUM 8.8 mg/dL (8.5-10.4); CARBON DIOXIDE 22 mEq/l (22-31); CHLORIDE 109 mEq/L (97-110); GLOMERULAR FILTRATION RATE > 60; GLUCOSE 89 mg/dL (70-100); POTASSIUM 4.2 mEq/L (3.5-5.2); SODIUM 144 mEq/L (134-144)
--- NOTE | 2017-09-11 04:25 | GCON ---
[f rep st] CONSULTATION HISTORY OF PRESENT ILLNESS: Patient is a 42-year-old male with chronic epilepsy who is 2 months stat us post craniotomy for control of his epilepsy with a temporal lobe resection. He, apparently, had a seizure last night, as best can be figured out. He is amnestic to events. His roommate brought him in today, after finding some blood on his head last night. He is admitted because he is on anticoag ulation. He has a vague petechial site on his head CT scan. He is presently neurologically complete ly intact, complaining of some left-sided rib pain. CT of the chest and abdomen were negative in the ER, as was the CT of his neck, and the head CT reveals a small vague petechial hemorrhage. PAST MEDICAL HISTORY: Includes epilepsy. He has had 2 craniotomies. He has mesial temporal scleros is causing his seizure disorder. He has had a recent DVT in his basilic vein from a PICC line. REVIEW OF SYSTEMS: Reveals no other major medical problems on a full complete review of systems. He specifically does not smoke. Denies any cardiopulmonary symptoms or diabetes. MEDICATIONS: Lamictal and warfarin. ALLERGIES: None. PHYSICAL EXAMINATION: GENERAL: Reveals an alert, cooperative, 42-year-old male in no acute distress . HEAD AND NECK: Reveal no significant evidence of trauma. He has craniotomy scars. He has a smal l amount of bruising over his left yarsanism area. TMs are clear. Pupils are normal. There are no ora l lesions. NECK: Supple, nontender. CHEST: Clear and symmetric. CARDIAC: Reveals a regular rhyt hm. ABDOMEN: Soft and nontender. EXTREMITIES: Benign with full range of motion and full pulses. NEUROLOGIC: Symmetric, physiologic. He is oriented x3. SKIN: Reveals no major abrasions or skin l esions. IMPRESSION: 1. Possible closed head injury with chronic seizures and possible recent grand mal seizure. Patient is on Coumadin, although his INR is only 1.3. Possible blunt shoulder and chest trauma, although no real evidence of any significant traumatic findings. 2. Chronic epilepsy with mesial temporal sclerosis. PLAN: Admit for observation, possible followup CT scan, if indicated, with neurology and neurosurger y consults. /[id number]/MODL
[2017-09-11] MEDS ORDERED: lamoTRIgine 100 MG TAB PO SCH ×2 (09:00)
--- NOTE | 2017-09-11 09:00 | NEUSURGPN ---
Assessment/Plan: 42 yr old with epilepsy s/p seizure and tiny left frontal petechial hemorrhage Plan: -Coumadin held, will defer to patients neurologist for need of further anticoagulant treatment. Risks vs benefits need to be careful considered given epilepsy history -Patient tiny left frontal petechial hemorrhage, no need for further imaging unless change in status -Patient has multiple old thoracic compression fractures -Neurology to see patient this am -Patient may dc home today after seen by Neurology -Discussed patient with Dr Bryant -Please call neurosurgery with any questions/concerns Subjective: Patient sitting on edge of bed doing well Objective: AxO x3 PERRLA EOMI CN 2-12 grossly intact -No droop -5/5 BUE, BLE Neuro Check Frequency: per routine Urinary Catheter in Place: No - Physician Discussed Patient with Dr.: Bryant Neurosurgery Physical Exam - Vitals, I&O, Labs I and O 09/10/17 09/11/17 09/12/17 05:59 05:59 05:59 Intake Total 750 Output Total 400 Balance 350 Weight 81.647 kg Intake: Oral (ml) 750 Output: Urine (ml) 400 Other: Number of Voids Toilet 3 Vital Signs Temp Pulse Resp BP Pulse Ox 36.6 C 53 L 14 116/72 96 09/11/17 00:00 09/11/17 03:54 09/11/17 03:54 09/11/17 03:54 09/11/17 03:54 Laboratory Results 09/11/17 03:50 09/11/17 03:50 ICD10 Worksheet Patient Problems: Problems Problem Status Onset Intraparenchymal hemorrhage of brain Acute Seizure Acute
[2017-09-11 09:32] VITALS: BP 104/73; PULSE 61; TEMP 98.2
--- NOTE | 2017-09-11 09:39 | TRAUMAPN ---
Assessment/Plan: 09/11/2017 PAD#1 Assessment: Tertiary re-evaluation shows only continued tenderness at left 7th costochondral junction without displacement by CT. Scar like density adjacent to bullae in right upper lobe should be followed up with CT in 6 months Plan: Nothing further to add from trauma standpoint. Subjective: no complaints except for left lower anterior chest wall mild tenderness. Objective: Vital Signs Temp Pulse Resp BP Pulse Ox 36.8 C 61 14 104/73 96 09/11/17 07:15 09/11/17 07:15 09/11/17 03:54 09/11/17 07:15 09/11/17 07:15 Laboratory Results 09/11/17 03:50 09/11/17 03:50 09/10/17 09/11/17 09/12/17 05:59 05:59 05:59 Intake Total 750 Output Total 400 Balance 350 PT 16.8 SEC (12.0-15.0) H 09/11/17 03:50 INR 1.34 (0.83-1.16) H 09/11/17 03:50 Physical Exam - Physical Exam General Appearance: WD/WN, alert, no apparent distress EENT: other (contusion in left temporal/left lateral orbital rim with minor abrasions to left lateral orbital rim) Neck: non-tender, full range of motion, supple Respiratory: chest non-tender (except left 7th costochondral junction ) Cardiac/Chest: regular rate, rhythm Abdomen: normal bowel sounds, non-tender, soft Male Genitalia: deferred Rectal: deferred Back: Normal inspection Skin: normal color, warm/dry Neuro/Psych: no motor/sensory deficits, alert, normal mood/affect, oriented x 3 Time Spent w/Patient (minutes): 25
--- NOTE | 2017-09-11 11:30 | ASDISCHSUM ---
Discharge Information Plan Status:Home with No Needs Medically Cleared to Leave:09/10/2017 Discharge Date:09/11/2017 10:07 AM CM D/C Disposition:Home, Routine, Self-Care ADT D/C Disposition:Home, Routine, Self-Care Projected Discharge Date:09/11/2017 10:00 AM Transportation at D/C:Friend Discharge Delay Reason: Follow-Up Date:09/11/2017 10:00 AM Discharge Slot: Final Diagnosis:Amber, ICH Placement Information Patient Contact Information Contact Name:GIOVANI Relationship:Mother Address:[address] City:[place] Alternate Phone: State/Zip Code:[place] [address] Email: Financial Information Financial Class:HMO and PPO Plans Primary Plan Desc:H[employer] Primary Plan Number:[id number] Secondary Plan Desc: Secondary Plan Number: Assessment Information Case Management Discharge Plan Note Case Management Discharge Discharge Order Complete? Answers: Yes Patient to Obtain Answers: Independently Medications Transportation Arranged Answers: Family/Friends Transport will Pick (Date 09/11/2017 12:00 AM & Time) Discharge Comments Notes: 42 year old male admitted after possible seizure and ICH. Patient has a hx of Epilepsy and 2 craniotomies. Patient has been cleared by Neurosurg and Neurology to discharge home. No other discharge needs. Date Signed: 09/11/2017 09:44 AM Electronically Signed By:Angela Holder LCSW Intervention Information
--- NOTE | 2017-09-11 12:24 | NEUROPROG ---
Assessment: [id number] CC: Dr. Gerard Vanessa consulted neurology for seizure. Results of consult placed in EMR for review. HPI: Pt admitted 09/10/17 for small intracerebral hemorrhage following a suspected unwitnessed seizure. He was found by a neighbor covered in blood on 09/09/17 so it was felt he likely has an unwitnessed seizure. He has no memory of the event but has a known seizure disorder on Lamictal 400 mg/qd and is managed by a epileptologist at [facility] . He was on anticoagulation for a prior DVT. A head CT showed a small possible left frontal intracerebral hemorrhage. Neurosurgery saw the patient but no surgery was needed. Pt denied missing any medication so it was felt he had a breakthrough seizure. Trauma team also evaluating patient for any other injuries. Pt found to have multiple prior compression fractures in the spinal cord but per neurosurgery not likely acute and no current surgical therapy needed for them. I initially saw the patient on 09/11/17. PMHx: seizure d/o (prior mesial temporal lobectomy for sz control), DVT on anticoagulation SHx: no tobacco FHx: NC ROS: Pt denied acute fever, total vision loss, active severe chest pain, respiratory failure, total body severe rash, total bowel/bladder incontinence, psychosis, active seizures, or active bleeding O: VS reviewed General: Alert, bruises on left face and head Eyes: Fundoscopic exam not able to visualize optic disks CV: Heart RRR, no murmur, no carotid bruit Lungs: Clear to auscultation bilaterally, no rhonci or rales Neuro: - Mental: . Oriented x person/place/date . concentration appears normal . speech fluency/comprehension normal . memory appears normal . fund of knowledge appear intact - Cranial Nerves: . II: PERRL, VFFTC . III/IV/: EOMI, no nystagmus, normal smooth pursuits, no Ptosis . V: facial sensation intact to LT . VII: face symmetric to eye closure and smile . VIII: hearing intact to conversation . IX/X: uvula raises symmetrically . XI: SCM 5/5 B/L strength . XII: tongue protrudes to right but likely from tongue swelling from biting w/nl strength - Motor: . Tone: normal tone in all 4 extrem . Strength: no pronator drift, strength 5/5 throughout (B/L delt, bic, tri, hand shank piece tacker, hf/he, df/pf) - Reflexes: B/L bic/BR/patella 2/4 - Sensory: all 4 extrem intact to light touch - Coord: [id number] wnl, KATELYN wnl, [id number] wnl - Gait: deferred Labs: 09/11/17- CBC unremarkable, INR 1.34, UTox + opiates and marijuana, chem wnl Rads: 09/10/17- Head CT: small foci of intraparenchymal hemorrhage in the L frontal lobe. Scalp hematoma w/o evidence for skull fx. Stable postsurgical change in L ant temp lobe and left craniotomy. (I personally visualized the images on 09/11/17) Assessment: 1. Likely breakthrough seizure causing fall/head trauma with residual small left frontal hemorrhage (pt was on anticoagulation): Normal neurologic exam on 09/11/17. Head CT on 09/10/17 showed small left frontal hemorrhage. Pt with known seizure disorder appeared to have breakthrough seizure despite not missing any medications and not having any clear provoking factor. He declined making medication changes at this time but will call his epileptologist at [facility] today to get medication recommendations. 2. Old Compression fractures in Spine: Does not appear acute. Neurosurgery monitoring. Plan: - Neurosurgery following - Blood pressure goals per neurosurgery - Stop outpatient coumadin, restart decision per neurosurgery - Continue Lamictal XR 400 mg qd (pt declined medication changes) - Seizure precautions and no driving until f/u with epileptologist at [facility] - F/U by phone with epileptologist at [facility] today after discharge Objective: Vital Signs Temp Pulse Resp BP Pulse Ox 36.8 C 61 14 104/73 96 09/11/17 07:15 09/11/17 07:15 09/11/17 03:54 09/11/17 07:15 09/11/17 07:15 Laboratory Results 09/11/17 03:50 09/11/17 03:50 09/10/17 09/11/17 09/12/17 05:59 05:59 05:59 Intake Total 750 Output Total 400 Balance 350 PT 16.8 SEC (12.0-15.0) H 09/11/17 03:50 INR 1.34 (0.83-1.16) H 09/11/17 03:50 Allergies/Adverse Reactions: No Known Allergies Allergy (Verified 09/10/17 10:49)
== END 2017-09-11 10:07 | disposition home or self-care (01) ==
LOC: F2N 16:35
PROVIDERS: ADMIT Neurological Surgery; ATTEND Neurological Surgery
DX: G40.909 Epilepsy, unspecified, not intractable, without status epilepticus (principal); Z86.718 Personal history of other venous thrombosis and embolism; Z79.01 Long term (current) use of anticoagulants
CPT/HCPCS: 70450; 71260; 72125; 74177; 93005; 97165; G0378; 80305; 82947-QW; 96374; J1170; J2060; J2405

== ENCOUNTER 2017-09-25 14:36 | Emergency (ER) | payer OTHER ==
[2017-09-25 14:46] VITALS: RESP 18; TEMP 98.4
--- NOTE | 2017-09-25 15:01 | EDPHY ---
H & P Time Seen by Provider: 09/25/17 14:58 HPI/ROS: CHIEF COMPLAINT: Seizure HISTORY OF PRESENT ILLNESS: Patient has a history of epilepsy was admitted here in early September after having had a seizure. At that time he was on warfarin had at traumatic intracranial hemorrhage which is treated non operatively. He is not further on warfarin. He takes Lamictal 400 mg a day which is unchanged. He stepped Topamax after 2 days on discharge from the hospital because it was giving him stomach upset. Today and have visualized tonic-clonic seizure at [facility] and presents by EMS with his mom. Normal pre-hospital glucose. His mother said that [employer] staff told her he did not hit the ground because they were able to catch him. Currently just feels "shaken up "but denies any headache neck or back pain or weakness or numbness in extremities. REVIEW OF SYSTEMS: Eye: no change in vision ENT: no sore throat Cardiac: no chest pain or syncope Pulmonary: no cough or SOB Abdomen: no vomiting, diarrhea, abdominal pain Musculoskeletal: no back pain Skin: Still has a bruise on his left forehead from his fall 2 weeks ago Neuro: no headache Constitutional: no fever : no urinary symptoms A comprehensive 10 point review of systems is otherwise negative aside from elements mentioned in the history of present illness. PAST MEDICAL HISTORY: Seizure disorder, DVT Social history: Here with his mom, no alcohol General Appearance: Alert and conversant, cooperative. Eyes: No scleral icterus. ENT, Mouth: No hemotympanum, still has a fading bruise on his left forehead. No other facial tenderness. Respiratory: Normal respiratory effort, breath sounds equal, lungs are clear to auscultation. Cardiovascular: Regular rate and rhythm. Gastrointestinal: Abdomen is soft and non tender. Neurological: Alert and oriented x3. Normally conversant. Face symmetric, normal movement and sensation in all extremities. [id number] normal and no pronator drift. Not tremulous. Skin: Warm and dry, no rashes. Musculoskeletal: No peripheral edema and no joint swelling. No cervical thoracic or lumbar spine tenderness. Psychiatric: Not agitated. Emergency Department course/MDM: Patient at relatively low risk for IH given that he is no longer on warfarin. He presents with a breakthrough seizure and typically he has 2 a month. Cervical spine cleared clinically. This appears to be a typical breakthrough seizure and I am not suspicious at this time for intracranial hemorrhage, [employer] infection, [employer] mass, metabolic abnormality. Discussed with his neurologist. She recommends additional 50 xr lamotrigine up to 450 x 1 week then up to 500; and discharge with office followup. He only has a little bit of tenderness in his left forehead with palpation wears a bruise from his fall couple weeks ago. Alert, looks well, answers questions appropriately, acting normally per his mother. Smoking Status: Never smoked Constitutional: Initial Vital Signs Temperature (C) 36.9 C 09/25/17 14:44 Heart Rate 81 09/25/17 14:44 Respiratory Rate 18 09/25/17 14:44 Blood Pressure 137/77 H 09/25/17 14:44 O2 Sat (%) 96 09/25/17 14:44 O2 Delivery Mode Room Air Allergies/Adverse Reactions: No Known Allergies Allergy (Verified 09/10/17 10:49) Home Medications: Medication Instructions Recorded lamOTRIGine [Lamotrigine] 400 mg PO DAILY 09/10/17 Acetaminophen [Tylenol 325mg (*)] 650 mg PO Q4HRS PRN tab 09/11/17 Warfarin Sodium [Coumadin 4MG (*)] 4 mg PO HS #0 09/17/17 lamoTRIgine [Lamotrigine] 50 mg PO AD #20 tab.er.24 09/25/17 Medical Decision Making Differential Diagnosis: Differential diagnosis considered for a seizure including but not limited to electrolyte abnormality, alcohol withdrawal, medication noncompliance, head injury, and breakthrough seizure. Consult/Admit Bed Type: [place] [id number] Departure - Departure Disposition: Home, Routine, Self-Care Clinical Impression: Seizure disorder Condition: Good Instructions: Epilepsy (ED) Referrals: VIKKI PALACIO [Medical Doctor] - As per Instructions Prescriptions: lamoTRIgine [Lamotrigine] 50 mg PO AD #20 tab.er.24
[2017-09-25 15:37] VITALS: BP 138/89; PULSE 78; O2SAT 98
== END 2017-09-25 15:36 | disposition home or self-care (01) ==
LOC: EDUNIT#
DX: G40.909 Epilepsy, unspecified, not intractable, without status epilepticus (principal)

== ENCOUNTER 2017-09-29 17:01 | Emergency (ER) | payer OTHER ==
[2017-09-29 17:16] VITALS: TEMP 98.2
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
[2017-09-29 17:24] LABS: PLATELET COUNT 280 10^3/uL (150-400)
[2017-09-29] MEDS ORDERED: NS 1,000 ML IV ONE (18:14)
[2017-09-29] MEDS ORDERED: LORazepam 2 MG/ML INJ IVP ONE (18:54)
[2017-09-29 19:01] VITALS: BP 112/80; PULSE 70; RESP 16; O2SAT 94
== END 2017-09-29 19:42 | disposition home or self-care (01) ==
DX: R53.83 Other fatigue (principal); T43.295A Adverse effect of other antidepressants, initial encounter; E86.9 Volume depletion, unspecified
CPT/HCPCS: 96374; J2060

== ENCOUNTER 2017-11-08 11:21 | Emergency (ER) | payer OTHER ==
[2017-11-08 11:59] VITALS: RESP 16
[2017-11-08] MEDS ORDERED: HYDROCODONE/APAP 5/325 TAB ONE (12:55)
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
[2017-11-08] MEDS ORDERED: HYDROCODONE/APAP 5/325 TAB PO ONE (12:57)
[2017-11-08 13:09] VITALS: BP 114/74; PULSE 72; TEMP 97.9; O2SAT 95
== END 2017-11-08 13:09 | disposition home or self-care (01) ==
DX: R51 Headache (principal)

== ENCOUNTER 2017-12-29 13:18 | Emergency (ER) | payer OTHER ==
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
[2017-12-29 13:33] LABS: PLATELET COUNT 303 10^3/uL (150-400)
[2017-12-29 13:42] VITALS: RESP 16
[2017-12-29 13:48] LABS: INR 0.93 (0.83-1.16); PROTIME(PATIENT) 12.7 SEC (12.0-15.0)
[2017-12-29] MEDS ORDERED: OXYCODONE/APAP 5/325 TAB PO ONE (15:00)
[2017-12-29 16:06] VITALS: BP 116/77; PULSE 65; TEMP 98.6; O2SAT 95
== END 2017-12-29 16:06 | disposition home or self-care (01) ==
LOC: EDUNIT#
PROC: 0HQDXZZ Repair Right Lower Arm Skin, External Approach (ICD-10-PCS; principal; 2017-12-29)
DX: S00.81XA Abrasion of other part of head, initial encounter (principal); S51.011A Laceration without foreign body of right elbow, initial encounter; G40.909 Epilepsy, unspecified, not intractable, without status epilepticus; V18.2XXA Unspecified pedal cyclist injured in noncollision transport accident in nontraffic accident, initial encounter; Y92.410 Unspecified street and highway as the place of occurrence of the external cause

== ENCOUNTER 2018-06-11 13:04 | Emergency (ER) | payer OTHER, MEDICAID ==
[2018-06-11] MEDS ORDERED: NS 1,000 ML IV ONE (13:52)
--- NOTE | 2018-06-11 13:56 | EDPHY ---
General - History Smoking Status: Never smoked Time Seen by Provider: 06/11/18 13:52 Narrative: CHIEF COMPLAINT: Seizure, fell from bed HISTORY OF PRESENT ILLNESS: Patient reports headache, seizure and fall from bed. He does not know what happened as he is amnestic to events. He states that he would bed last night as routine. He woke this morning on floor of his bedroom and again in the bathroom floor. He does not know any details other than he "awoke in a puddle of urine" with severe headache and tongue pain. He has had some difficulty with thought process today. He has had difficulty ambulating other than pain in his back and head. No numbness or tingling. No weakness. No subsequent incontinence of bowel or bladder. Has a known history of epilepsy for the past year. He was supposed to see his neurologist today and [place] but was unable to do so. Pain in the back is severe with palpation and movement. Improved at rest and does not radiate. Headache is mild to moderate. Worse with movement. He also had 8-10 episodes of vomiting this morning. No other associated complaints or modifying factors. Last known seizure was December of this year. REVIEW OF SYSTEMS: 10 systems were reviewed and negative with the exception of the elements mentioned in the history of present illness. PCP: Dr. Corrina Beal SPECIALISTS: Neurology at [facility] PAST MEDICAL HISTORY: Epilepsy, "clotting disorder" PAST SURGICAL HISTORY: Craniotomy, SOCIAL HISTORY: Nonsmoker. Lives independently but currently disabled does not work. FAMILY HISTORY: Noncontributory EXAMINATION: General Appearance: Alert, no distress Head: normocephalic. no Jim sign. No raccoon eyes. Superficial hematoma on the occiput on the left side. Eyes: Pupils equal and round, no conjunctival pallor or injection. EOM symmetric without nystagmus. ENT, Mouth: Mucous membranes moist. Moderate ecchymosis and superficial wound to the anterior tongue. Airway is widely patent. Neck: Normal inspection, supple, non-tender. No crepitus or deformity. No midline tenderness. Mild tenderness the left trapezius only. Respiratory: Lungs are clear to auscultation Cardiovascular: Regular rate and rhythm. No murmur Gastrointestinal: Abdomen is soft and nontender Back: There is midline tenderness of the upper thoracic spine without crepitus or deformity. There is no tenderness of the lumbar spine. Neurological: GCS 15. Alert to person, place and time. Disoriented to scenario of events. 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 Patellar reflexes symmetric. No wrist or foot drop. Normal [id number]. No pronator drift. Postictal state Skin: Warm and dry, no rash. No laceration. Extremities: Nontender, no pedal edema. Symmetric range of motion. Psychiatric: Mood and affect normal DIFFERENTIAL DIAGNOSES: Including but not limited to seizure, closed injury, concussion, contusion, intracranial hemorrhage, skull fracture MDM: 1:50 p.m. Probable seizure with subsequent closed head injury. There are no known details of the event as he is amnestic and lives at home alone. He does have injury to the tongue. He has no evidence of ongoing seizure activity or status epilepticus. Has known seizure disorder. I have ordered imaging of the head due to closed head injury with uncertain details and amnestic to events. I have ordered laboratory studies and will provide IV fluid. He is resting comfortably. Vital signs are within limits. 2:54 p.m. Notified by radiologist Dr. Durbin. We discussed the radiology findings for the CT scan of the head. No suspected acute changes. Patient re- evaluated. He remains awake alert no acute distress. He is going to the radiology department for thoracic x-ray. Laboratory studies pending. 4:00 p.m. Lamotrigine level has been added. Thoracic spine x-ray reveals no acute findings. Patient remains awake alert, no acute distress. No seizure activity here. 4:40 p.m. Case discussed with Dr. Duarte, cardiopulmonary technologist for patient's neurologist (Dr. Palacio). She does not recommend any medication changes. She recommends that he contact their office to be seen in the next 1-2 days. I discussed this with the patient he is agreeable with this as well. He would like to go home this time. He has arranged for a right home as he does not drive. We discussed ED precautions for any subsequent seizures, any lower back pain, numbness, tingling , weakness or incontinence. He is ambulatory without difficulty or assistance. He is discharged home stable condition. SUPERVISION: Patient was independently examined, but I discussed the case with my secondary supervising physician Dr. Robles CONSULTATION: Neurology by telephone, Dr. Duarte (Neurology) (Brad Tucker) Medical Decision Making: PHYSICIAN DOCUMENTATION: The patient was evaluated and managed by the Physician Construction Engineer. My co- signature indicates that I have reviewed this chart and I agree with the findings and plan of care as documented. I am the secondary supervising physician. (Roberto Robles) - Diagnostics Imaging Results: Imaging Impressions Head CT 06/11/18 13:51 Impression: 1. No acute findings. If symptoms persist and clinical suspicion warrants, consider MRI. 2. Minimal increase in size of an area of cystic encephalomalacia in the anterior left temporal lobe. Findings discussed with Brad Tucker, 06/11/2018 at 14:53. Thoracic Spine X-Ray 06/11/18 13:52 Impression: Stable prominent compression deformity of T6 with associated sclerosis with upper endplate deformities of L1 and T12. No acute fracture is seen. - Objective Vital Signs: Initial Vital Signs Temperature (C) 98.1 F 06/11/18 13:07 Heart Rate 80 06/11/18 13:07 Respiratory Rate 17 06/11/18 13:07 Blood Pressure 127/76 H 06/11/18 13:07 O2 Sat (%) 96 06/11/18 13:07 O2 Delivery Mode Room Air Allergies/Adverse Reactions: No Known Allergies Allergy (Verified 06/11/18 13:07) Home Medications: Medication Instructions Recorded lamOTRIGine [Lamotrigine] 400 mg PO DAILY 09/10/17 lamoTRIgine [Lamotrigine] 50 mg PO AD #20 tab.er.24 09/25/17 oxyCODONE IR [Oxycodone Ir (*)] 5 mg PO Q6 PRN #7 tab 06/11/18 Laboratory Results: Laboratory Results 06/11/18 14:05 06/11/18 14:05 06/11/18 06/11/18 06/11/18 16:05 14:05 14:05 WBC 15.70 10^3/uL H 10^3/uL (3.80-9.50) RBC 4.62 10^6/uL 10^6/uL (4.40-6.38) Hgb 15.6 g/dL g/dL (13.7-17.5) Hct 44.7 % % (40.0-51.0) MCV 96.8 fL fL (81.5-99.8) MCH 33.8 pg pg (27.9-34.1) MCHC 34.9 g/dL g/dL (32.4-36.7) RDW 11.6 % % (11.5-15.2) Plt Count 215 10^3/uL 10^3/uL (150-400) MPV 9.9 fL fL (8.7-11.7) Neut % (Auto) 86.8 % H % (39.3-74.2) Lymph % (Auto) 5.5 % L % (15.0-45.0) [place] % (Auto) 6.8 % % (4.5-13.0) Eos % (Auto) 0.0 % L % (0.6-7.6) Baso % (Auto) 0.3 % % (0.3-1.7) Nucleat RBC Rel Count 0.0 % % (0.0-0.2) Absolute Neuts (auto) 13.63 10^3/uL H 10^3/uL (1.70-6.50) Absolute Lymphs (auto) 0.87 10^3/uL L 10^3/uL (1.00-3.00) Absolute Monos (auto) 1.07 10^3/uL H 10^3/uL (0.30-0.80) Absolute Eos (auto) 0.00 10^3/uL L 10^3/uL (0.03-0.40) Absolute Basos (auto) 0.04 10^3/uL 10^3/uL (0.02-0.10) Absolute Nucleated RBC 0.00 10^3/uL 10^3/uL (0-0.01) Immature Gran % 0.6 % % (0.0-1.1) Immature Gran # 0.09 10^3/uL 10^3/uL (0.00-0.10) Sodium 138 mEq/L mEq/L (135-145) Potassium 3.9 mEq/L mEq/L (3.3-5.0) Chloride 102 mEq/L mEq/L (97-110) Carbon Dioxide 26 mEq/l mEq/l (22-31) Anion Gap 10 mEq/L mEq/L (8-16) BUN 11 mg/dL mg/dL (7-23) Creatinine 0.9 mg/dL mg/dL (0.7-1.3) Estimated GFR > 60 Glucose 127 mg/dL H mg/dL (70-100) Calcium 9.6 mg/dL mg/dL (8.5-10.4) Creatine Kinase 613 IU/L H IU/L (0-224) CK-MB (CK-2) Fraction 4.51 ng/mL ng/mL (0.00-4.55) CK-MB (CK-2) % 0.7 % % (0.0-4.0) Creatine Kinase Interp NEGATIVE (NEGATIVE) Lamotrigine Pending Medications Given: Discontinued Medications Sodium Chloride (Ns) 1,000 mls @ 0 mls/hr IV EDNOW ONE; Wide Open PRN Reason: Protocol Stop: 06/11/18 13:53 Last Admin: 06/11/18 14:09 Dose: 1,000 mls Departure - Departure Disposition: Home, Routine, Self-Care Clinical Impression: Seizure, 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 Keep your appointment with your physicians as discussed 2. pain medication as provided as needed 3. ED precautions for recurrent seizure, midline back pain, numbness, tingling or weakness, incontinence of bowel or bladder Referrals: VIKKI PALACIO [Medical Doctor] - As per Instructions Prescriptions: oxyCODONE IR [Oxycodone Ir (*)] 5 mg PO Q6 PRN #7 tab PRN Reason: Pain, Breakthrough
[2018-06-11 14:23] LABS: PLATELET COUNT 215 10^3/uL (150-400)
[2018-06-11 15:12] LABS: CREATINE KINASE 613 IU/L (0-224)
[2018-06-11 16:32] VITALS: BP 125/76
== END 2018-06-11 17:05 | disposition home or self-care (01) ==
DX: G40.909 Epilepsy, unspecified, not intractable, without status epilepticus (principal); M54.6 Pain in thoracic spine; G93.81 Temporal sclerosis; E86.9 Volume depletion, unspecified; W06.XXXA Fall from bed, initial encounter; Y92.013 Bedroom of single-family (private) house as the place of occurrence of the external cause; Y99.8 Other external cause status
CPT/HCPCS: 80175-90

== ENCOUNTER 2018-09-23 11:48 | Emergency (ER) | payer MEDICAID ==
[2018-09-23] MEDS ORDERED: NS 1,000 ML IV ONE (11:49)
[2018-09-23] MEDS ORDERED: LORazepam 2 MG/ML INJ IVP ONE (11:50)
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
[2018-09-23 12:05] LABS: PLATELET COUNT 206 10^3/uL (150-400)
[2018-09-23] MEDS ORDERED: ONDANSETRON 4 MG/2 ML VIAL IVP ONE (12:12)
[2018-09-23 12:30] LABS: INR 0.94 (0.83-1.16); PROTIME(PATIENT) 12.8 SEC (12.0-15.0)
[2018-09-23 13:36] VITALS: BP 121/67
== END 2018-09-23 13:36 | disposition home or self-care (01) ==
PROC: 0HQ1XZZ Repair Face Skin, External Approach (ICD-10-PCS; principal; 2018-09-23)
DX: S01.81XA Laceration without foreign body of other part of head, initial encounter (principal); G40.909 Epilepsy, unspecified, not intractable, without status epilepticus; E86.9 Volume depletion, unspecified; W19.XXXA Unspecified fall, initial encounter; Y99.0 Civilian activity done for income or pay; Y92.9 Unspecified place or not applicable; Y93.9 Activity, unspecified
CPT/HCPCS: 82435-PO; 82565-PO; 82947-PO; 84132-PO; 84295-PO; 84520-PO; 85014-PO; 96374; G0480; J2060; J2405